=== PATIENT | female | born 1945 | race Caucasian/White ===

== ENCOUNTER → 2019-05-31 16:38 | Outpatient (CLI) | payer MEDICARE, SELFPAY ==
--- NOTE | ~2019-05-31 | MR_ITS ---
EXAMINATION: MR brain/brain stem wo con DATE: 05/31/2019 17:32 INDICATION: Headache. Vision changes. TECHNIQUE: Magnetic resonance imaging (MRI) of the brain and brainstem was performed without intraven ous contrast. Sequences included sagittal and axial T1-weighted SE, axial diffusion-weighted FS SE, a xial T2*-weighted GRE, axial T2-weighted FLAIR Propeller, and axial T2-weighted Propeller. Apparent d iffusion coefficient (ADC) maps were created. COMPARISON: No prior studies for comparison. FINDINGS: Mild generalized atrophy. Normal ivory-white differentiation. No evidence for acute infarcti on or hemorrhage. No ventriculomegaly or midline shift. Structures of the posterior fossa including 7 /8th cranial nerve complexes are normal. Sagittal images demonstrate a normal corpus callosum and craniovertebral junction. Orbits are symmetr ic without disconjugate gaze. Mild mucosal thickening of the right maxillary sinus. Flow voids in the major intracerebral arteries are unremarkable. IMPRESSION: 1. No significant intracranial abnormality. 2: Mild chronic age-related findings. Reviewed, dictated and finalized at location [facility]
== END ==
PROVIDERS: PCP Internal Medicine; Visit Provider Internal Medicine
DX: R51 Headache (principal); H53.9 Unspecified visual disturbance
CPT/HCPCS: 70551

== ENCOUNTER 2020-12-30 00:37 | Day surgery (SDC) | payer MEDICARE, SELFPAY ==
[2020-12-21 09:26] VITALS: BMI 35.5
[2020-12-30 06:34] VITALS: BP 146/65; PULSE 87; RESP 22; TEMP 36.4; O2SAT 97; BMI 35.4
[2020-12-30 06:46] LABS: Glucose Point of Care 126 mg/dl (65-105)
[2020-12-30] MEDS: LACTATED RINGERS 1,000 ML 150 ML IV CONT (06:55)
[2020-12-30] MEDS: GENTAMICIN 80MG/SOD CHL 50 ML 80 MG/50 ML BAG 100 MG IVPB (06:57)
--- NOTE | 2020-12-30 07:14 | WPDANESEPPF ---
Anes - Initial Pre Proc Eval Procedure: Operation Date: 12/30/20 07:30 Proposed Procedures p Screening Colonoscopy - Khang Lee MD Date/Time: 12/30/20 07:14 Surgeon: Khang Lee MD Pre Op Diagnosis: hx of colon polyps Patient Data Age: 75 Gender: F Height: 1.63 m Weight: 93.7 kg Last Vital Signs Temp 97.5 F L 12/30/20 06:34 Pulse 87 12/30/20 06:34 Resp 22 H 12/30/20 06:34 BP 146/65 H 12/30/20 06:34 Pulse Ox 97 12/30/20 06:34 Allergies Allergy/AdvReac Type Severity Reaction Status Date / Time No Known Allergies Allergy Verified 12/30/20 06:33 Home Medications Medication Instructions Recorded Confirmed Type ascorbic acid-elderberry fruit 2 tablet PO DAILY 12/21/20 12/21/20 History [Airborne (elderberry)] aspirin 81 mg PO DAILY 12/21/20 12/21/20 History cholecalciferol (vitamin D3) 50 mcg PO DAILY 12/21/20 12/21/20 History [Vitamin D3] furosemide 20 mg PO QMWF 12/21/20 12/21/20 History insulin degludec [Tresiba 36 unit SUBCUT HS 12/21/20 12/21/20 History FlexTouch U-100] insulin regular human [Novolin R See Rx Instructions .ROUTE .COMPLEX 12/21/20 12/21/20 History Regular U-100 Insuln] levothyroxine 75 mcg PO DAILY 12/21/20 12/21/20 History losartan 25 mg PO DAILY 12/21/20 12/21/20 History rosuvastatin 40 mg PO DAILY 12/21/20 12/21/20 History Laboratory Tests 12/30/20 06:42 POC Capillary Glucose 126 mg/dl H mg/dl (65-105) Patient hx anesthesia problems: none Family hx anesthesia problems: none PMFSH Past Medical History Medical History (Updated 12/30/20 @ 07:15 by Prosper Monique MD) Hyperlipidemia Hypertension Hypothyroid Latent autoimmune diabetes in adults, managed as type 2 Surgical History Surgical History (Updated 12/30/20 @ 07:15 by Prosper Monique MD) S/P CABG x 2 Family History Family History (Updated 12/05/17 @ 08:08 by DOCTOR UNKNOWN) Other Diabetes mellitus Family history of malignant neoplasm Hypertension Social History Social History Smoking status: Never smoker Alcohol intake: never Substance use: never Substance use type: does not use Living arrangements: alone Spiritual care concerns: No Anes - Eval Final PreProcedure Day of Procedure 12/30/20 07:14 Patient weight: obese Heart: regular rate and rhythm Lungs: clear to auscultation Airway: Mallampati scale class II Neurological: alert and oriented Last oral intake: >/= 8 hours ASA classification: III Emergent: no Anesthetic plan: proceed Anesthesia type and monitoring: general GIVS and standard monitoring Informed Consent: The patient's anesthetic plan and its attendant risks and benefits were discussed with the patient/family/POA. Questions were solicited and answers provided to the satisfaction of the patient/family/POA.
[2020-12-30] MEDS: AMPICILLIN 2 GM/NS 100 ML 2 GM/100 ML BAG IVPB (07:15)
--- NOTE | 2020-12-30 08:02 | WPDGICN ---
Assessment and Plan Assessment and plan (1) History of colon polyps: Code(s): Z86.010 - Personal history of colonic polyps Status: Acute Assessment and Plan: Patient has a prior history of colon polyps for this reason surveillance colonoscopy advised. Further recommendations will be given after colonoscopy. Anticipate follow-up colonoscopy at 5 year intervals. (2) Obese: Code(s): E66.9 - Obesity, unspecified Status: Acute GI Consult Note Consult date/time: 12/30/20 08:02 HPI: Yancy Boogie is a 75 year old female Presents for screening colonoscopy. Patient has a prior history of colon polyps. She reports has been more than 10 years since last colonoscopy. Patient has current weight appetite bowel movements are normal. She denies abdominal pain. She has had no bleeding. Family history is noncontributory. Review of Systems Review of Systems: All systems reviewed & are unremarkable except as noted in HPI and below PMFSH Past Medical History Medical History (Updated 12/30/20 @ 08:03 by Khang Lee MD) Hyperlipidemia Hypertension Hypothyroid Latent autoimmune diabetes in adults, managed as type 2 Surgical History Surgical History (Updated 12/30/20 @ 07:15 by Prosper Monique MD) S/P CABG x 2 Family History Family History (Updated 04/04/17 @ 08:08 by DOCTOR UNKNOWN) Other Diabetes mellitus Family history of malignant neoplasm Hypertension Social History Social History Smoking status: Never smoker Alcohol intake: never Substance use: never Substance use type: does not use Living arrangements: alone Spiritual care concerns: No Meds Home Medications and Allergies Home Medications Medication Instructions Recorded Confirmed Type ascorbic acid-elderberry fruit 2 tablet PO DAILY 12/21/20 12/21/20 History [Airborne (elderberry)] aspirin 81 mg PO DAILY 12/21/20 12/21/20 History cholecalciferol (vitamin D3) 50 mcg PO DAILY 12/21/20 12/21/20 History [Vitamin D3] furosemide 20 mg PO QMWF 12/21/20 12/21/20 History insulin degludec [Tresiba 36 unit SUBCUT HS 12/21/20 12/21/20 History FlexTouch U-100] insulin regular human [Novolin R See Rx Instructions .ROUTE .COMPLEX 12/21/20 12/21/20 History Regular U-100 Insuln] levothyroxine 75 mcg PO DAILY 12/21/20 12/21/20 History losartan 25 mg PO DAILY 12/21/20 12/21/20 History rosuvastatin 40 mg PO DAILY 12/21/20 12/21/20 History Allergies Allergy/AdvReac Type Severity Reaction Status Date / Time No Known Allergies Allergy Verified 12/30/20 06:33 Vital Signs Vital Signs - 24 hr 12/30/20 06:34 Temperature 97.5 F L Pulse Rate 87 Respiratory Rate 22 H Blood Pressure 146/65 H Pulse Oximetry 97 Exam Narrative: Physical exam reveals patient to be alert. Vital signs stable. HEENT exam is unremarkable. Patient is anicteric. Lungs are clear to auscultation and percussion. Heart is without murmur or extra sounds. Abdominal exam bowel sounds are present soft nontender with no organomegaly. Digital external rectal exam is normal.
[2020-12-30 08:04] VITALS: BP 99/49; PULSE 63; RESP 18; O2SAT 96
[2020-12-30 08:14] VITALS: BP 112/49; PULSE 61; RESP 18; O2SAT 95
[2020-12-30 08:22] VITALS: BP 123/56; PULSE 61; RESP 18; O2SAT 97
== END 2020-12-30 08:40 | disposition home or self-care (01) ==
PROVIDERS: PCP Internal Medicine; Visit Provider Internal Medicine Gastroenterology
PROC: 0DJD8ZZ Inspection of Lower Intestinal Tract, Via Natural or Artificial Opening Endoscopic (ICD-10-PCS; CPT 45378; principal; 2020-12-30 07:30)
DX: Z12.11 Encounter for screening for malignant neoplasm of colon (principal); D12.2 Benign neoplasm of ascending colon; D12.3 Benign neoplasm of transverse colon; K57.30 Diverticulosis of large intestine without perforation or abscess without bleeding; K64.8 Other hemorrhoids; I10 Essential (primary) hypertension; E78.5 Hyperlipidemia, unspecified; E03.9 Hypothyroidism, unspecified; E10.9 Type 1 diabetes mellitus without complications; Z95.1 Presence of aortocoronary bypass graft; Z79.82 Long term (current) use of aspirin; Z79.4 Long term (current) use of insulin; E66.9 Obesity, unspecified; Z68.35 Body mass index [BMI] 35.0-35.9, adult
CPT/HCPCS: 45385; 82948; 88305; J0290; J1580; J2704; J7120

== ENCOUNTER 2023-07-14 09:13 | Outpatient (CLI) | payer MEDICARE, SELFPAY ==
[2023-07-14 09:58] LABS: Basophils Absolute Auto 0.1 K/mm3 (0.0-0.1); Basophils Percent Auto 0.8 % (0.2-1.2); Eosinophils Absolute Auto 0.1 K/mm3 (0-0.3); Eosinophils Percent Auto 2.2 % (0-4.4); Hemoglobin 11.7 g/dL (12.0-15.0); Immature Granulocyte Absolute 0.01 K/mm3 (0.00-0.031); Immature Granulocyte Percent A 0.2 % (0-0.5); Lymphocytes Percent Auto 22.2 % (18.3-44.2); Mean Corpuscular HGB Conc 31.6 g/dl (32-36); Mean Corpuscular Hemoglobin 28.5 pg (26-34); Mean Platelet Volume 9.4 fl (7.4-10.4); Monocytes Absolute Auto 0.5 K/mm3 (0.1-0.6); Monocytes Percent Auto 7.1 % (2.6-8.5); Neutrophils Absolute Auto 4.3 K/mm3 (1.3-6.7); Neutrophils Percent Auto 67.5 % (45.5-73.1); Platelet Count Result 224 k/mm3 (150-375); Red Blood Count 4.11 M/mm3 (4.2-5.4); Red Cell Distribution Width 13.7 % (11.5-14.5); White Blood Count 6.3 K/mm3 (4.5-10.0)
== END 2023-07-14 09:14 | disposition home or self-care (01) ==
PROVIDERS: PCP Nurse Practitioner Family; Visit Provider Nurse Practitioner Adult Health
DX: R06.09 Other forms of dyspnea (principal)
CPT/HCPCS: 36415; 85025

== ENCOUNTER 2023-07-25 07:54 | Outpatient (CLI) | payer MEDICARE, SELFPAY ==
--- NOTE | 2023-08-14 11:12 | WPDPFTINT ---
PFT Procedure Performed PFT Procedure Performed Spirometry with Pre/Post Bronchodilator Plethysmography (Lung Vol) Diffusing Cap (DLCO) Flow Vol Loop PFT Interpretation DOS: 07/25/2023 REQUESTING: FÁTIMA Mooney REASON FOR TESTING: shortness of breath PULMONARY FUNCTION TESTS Results are reliable and reproducible. Repeatability of spirometry FEV1 maneuver pre and post bronchodilator is Grade A. Spirometry: The pre-bronchodilator FEV1 is 1.72 L, 86%, normal. The pre-bronchodilator FVC is 2.24 L, 86%, normal. The FEV1/FVC ratio is 77%, nor. After bronchodilator, the FEV1 is 1.76 L, 88%, +2% increase. The FVC is 2.32 L, 89%, +4% increase. The FEV1/FVC post bronchodilator ratio is 88%, normal. Lung volumes: The total lung capacity is 4.79 L, 94%. The residual volume is 2.27 L, 96%. The RV/TLC is 47%. Airway resistance normal, 107%. Diffusion: DLCO is 11.7, 60%, decreased. The DLCO/VA is 3.37, 81%, normal. Flow volume loop: The flow volume loop is normal. IMPRESSION: This study shows normal spirometry without response to bronchodilator, normal lung volumes with a mild diffusion impairment that corrects when adjusted for alveolar volume. No prior studies for comparison. Val Montelongo MD
== END 2023-07-25 07:55 | disposition home or self-care (01) ==
PROVIDERS: PCP Nurse Practitioner Family; Visit Provider Nurse Practitioner Family
DX: R06.02 Shortness of breath (principal)
CPT/HCPCS: 94060; 94726; 94729

== ENCOUNTER 2023-11-29 14:30 | Outpatient (RCR) | payer MEDICARE, SELFPAY ==
[2023-10-10 09:27] VITALS: BMI 34.7
[2023-10-10 09:42] VITALS: BMI 34.7
== END 2023-12-18 11:18 | disposition home or self-care (01) ==
LOC: ANHDMC 14:30
PROVIDERS: PCP Nurse Practitioner Family; Visit Provider Internal Medicine Endocrinology, Diabetes & Metabolism
DX: E11.22 Type 2 diabetes mellitus with diabetic chronic kidney disease (principal); E78.2 Mixed hyperlipidemia; I12.9 Hypertensive chronic kidney disease with stage 1 through stage 4 chronic kidney disease, or unspecified chronic kidney disease; N18.32 Chronic kidney disease, stage 3b; Z71.89 Other specified counseling; Z71.3 Dietary counseling and surveillance
CPT/HCPCS: 97802; G0108; G0109

== ENCOUNTER 2024-02-15 14:24 | Outpatient (RCR) | payer MEDICARE, SELFPAY | END 2024-02-15 16:06 | disposition home or self-care (01) | LOC: ANHDMC 14:24 | PROVIDERS: PCP Nurse Practitioner Family; Visit Provider Internal Medicine Endocrinology, Diabetes & Metabolism | DX: E11.22 Type 2 diabetes mellitus with diabetic chronic kidney disease (principal); I12.9 Hypertensive chronic kidney disease with stage 1 through stage 4 chronic kidney disease, or unspecified chronic kidney disease; N18.32 Chronic kidney disease, stage 3b; E78.5 Hyperlipidemia, unspecified; I10 Essential (primary) hypertension; Z71.89 Other specified counseling | CPT/HCPCS: G0109 ==